=== PATIENT | female | born 2005 | race American Indian/Alaskan Native ===

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

== ENCOUNTER 2024-08-19 12:45 | Emergency (ER) | payer OTHER ==
[2024-08-19 13:18] LABS: APPEARANCE,URINE SLIGHTLY CLOUDY (CLEAR); BILIRUBIN,URINE MODERATE (NEGATIVE); COLOR,URINE DARK YELLOW (YELLOW); GLUCOSE,URINE NEGATIVE (NEGATIVE); KETONES,URINE TRACE (NEGATIVE); LEUKOCYTE ESTERASE,URINE SMALL (NEGATIVE); NITRITE,URINE NEGATIVE (NEGATIVE); OCCULT BLOOD,URINE TRACE-INTACT (NEGATIVE); PH,URINE 6.5 (5.0-9.0); PROTEIN,URINE >=300 (NEGATIVE); UROBILINOGEN,URINE 0.2 mg/dL (0.2-1.0)
[2024-08-19 14:16] LABS: BACTERIA,URINE MODERATE /HPF (0-FEW/HPF); EPITHELIAL CELLS,URINE MODERATE /HPF (NOT SEEN); MUCUS,URINE MODERATE /LPF (NOT SEEN); RBC,URINE 0-5 /HPF (0-5); WBC,URINE 50-75 /HPF (0-5/HPF)
[2024-08-19] MEDS: Take Home: Nitrofurantoin Monohydrate/Macrocrystalline 100 MG, 6 Cap Pack PO ONE (14:39)
[2024-08-19 15:00] VITALS: BP 125/78; PULSE 67
== END 2024-08-19 14:52 | disposition home or self-care (01) ==
LOC: DL.ED 12:45
DX: M25.561 Pain in right knee (principal); N39.0 Urinary tract infection, site not specified; Z79.899 Other long term (current) drug therapy
CPT/HCPCS: 73562; 81001; 81025; 82947; 87086; 99284; A9270

== ENCOUNTER 2025-05-09 03:03 | Emergency (ER) | payer OTHER ==
[2025-05-09] MEDS ORDERED: Sodium Chloride 0.9% 10 ML Syringe FLUSH PRN (03:15)
[2025-05-09 03:31] LABS: BASOPHILS PERCENT AUTO 0.4 % (0.0-1.0); EOSINOPHILS PERCENT AUTO 0.7 % (1.0-3.0); LYMPHOCYTES PERCENT AUTO 13.2 % (20.5-50.1); MONOCYTES PERCENT AUTO 6.7 % (2-8); NEUTROPHILS PERCENT AUTO 79.0 % (42.2-75.2); PLATELET COUNT,PLT 323 10^3/uL (150-450); RED BLOOD CELL COUNT 4.85 10^6/uL (4.2-5.4); WHITE BLOOD CELL COUNT,WBC 8.2 10^3/uL (5.0-10.0)
[2025-05-09 03:36] LABS: APPEARANCE,URINE CLEAR (CLEAR); GLUCOSE,URINE NEGATIVE (NEGATIVE); OCCULT BLOOD,URINE TRACE-INTACT (NEGATIVE)
[2025-05-09 03:40] LABS: AMPHETAMINES,URINE NEGATIVE (NEGATIVE); BARBITURATES,URINE NEGATIVE (NEGATIVE); MDMA (ECSTASY), URINE NEGATIVE (NEGATIVE); METHAMPHETAMINES,URINE NEGATIVE (NEGATIVE); OPIATES,URINE NEGATIVE (NEGATIVE); OXYCODONE,URINE NEGATIVE (NEGATIVE); PHENCYCLIDINE,URINE NEGATIVE (NEGATIVE); TCA,URINE NEGATIVE (NEGATIVE)
[2025-05-09 03:42] LABS: HCG QUALITATIVE,SERUM NEGATIVE (NEGATIVE)
[2025-05-09 03:49] LABS: EPITHELIAL CELLS,URINE RARE /HPF (NOT SEEN)
[2025-05-09 03:58] LABS: A/G RATIO 0.8; ALANINE AMINOTRANSFERASE,ALT 219 U/L (14-59); ASPARTATE AMNIOTRANSFERASE,AST 258 U/L (15-37); BILIRUBIN TOTAL 0.4 mg/dL (0.2-1.0); BLOOD UREA NITROGEN,BUN 7 mg/dL (7-18); CARBON DIOXIDE,CO2 25 mmol/L (21-32); CHLORIDE,CL 108 mmol/L (98-107); CREATININE 0.51 mg/dL (0.55-1.02); EST CRCL DRUG DOSING (CG) 164.72 mL/min; ESTIMATED GFR 137 mL/min (>=60); ETHANOL BLOOD MEDICAL 77 mg/dL (0); GLUCOSE RANDOM 105 mg/dL (70-99); POTASSIUM,K 3.7 mmol/L (3.5-5.1); PROTEIN TOTAL,TP 7.9 g/dL (6.4-8.2); SODIUM,NA 144 mmol/L (136-145)
[2025-05-09 05:43] VITALS: BP 164/109; PULSE 114
== END 2025-05-09 05:41 | disposition home or self-care (01) ==
LOC: DL.ED 03:03
DX: Z04.1 Encounter for examination and observation following transport accident (principal); F10.129 Alcohol abuse with intoxication, unspecified; Y90.2 Blood alcohol level of 40-59 mg/100 ml; Z79.899 Other long term (current) drug therapy
CPT/HCPCS: 36415; 70450; 72125; 80053; 80305-QW; 80307; 81001; 83735; 84703; 85025; 99285